=== PATIENT | male | born 1945 | race Caucasian/White ===

== ENCOUNTER → 2017-10-26 | Outpatient (CLI) | payer OTHER | LOC: BHFA 09:00 | PROVIDERS: ATTEND Internal Medicine Cardiovascular Disease | DX: R07.9 Chest pain, unspecified (principal) | CPT/HCPCS: 78452; 93017; A9500 ==

== ENCOUNTER 2017-11-13 07:35 | Day surgery (SDC) | payer OTHER ==
[2017-11-13] MEDS ORDERED: ASPIRIN EC 325 MG TAB PO ONE (07:45)
[2017-11-13] MEDS ORDERED: FAMOTIDINE 20 MG TAB PO ONE (07:45)
[2017-11-13] MEDS ORDERED: NS 1,000 ML IV ONE (07:45)
[2017-11-13] MEDS ORDERED: diphenhydrAMINE 25 MG CAP PO ONE (07:45)
[2017-11-13] MEDS ORDERED: DIAZEPAM 5 MG TAB PO ONE (07:45)
--- NOTE | 2017-11-13 07:58 | CPEKG ---
Heart Rate: 73 RR Interval: 822 P-R Interval: 168 QRSD Interval: 84 QT Interval: 424 QTC Interval: 468 P Concord: 20 QRS Concord: -29 T Wave Concord: 13 EKG Severity - OTHERWISE NORMAL ECG - EKG Impression: SINUS RHYTHM EKG Impression: BORDERLINE LEFT AXIS DEVIATION Electronically Signed By: Fredy Bills 13-Nov-2017 10:43:08
[2017-11-13] MEDS ORDERED: ASPIRIN 81 MG CHEWABLE TAB ONE (08:12)
[2017-11-13] MEDS ORDERED: ASPIRIN EC 81 MG TAB PO ONE (08:13)
[2017-11-13 08:15] LABS: PLATELET COUNT 172 10^3/uL (150-400)
--- NOTE | 2017-11-13 08:22 | PDPROPOC ---
Sedation Plan of Care Sedation Plan of Care: vital signs stable, mental status noted, patient educated of risks, benefits, alternatives, patient can tolerate sedation ASA Classification: ASA 2 Planned drugs: fentanyl, midazolam Mallampati Score: Class 1 Mallampati Reference Image: Patient passed 3-3-2 rule?: Yes
--- NOTE | 2017-11-13 08:22 | PDHPUP ---
History & Physical Update H&P update statement: This history and physical update is based on an assessment of the patient which was completed after admission or registration (within 24 hours), but prior to the surgery/procedure. H&P update: H&P reviewed & patient examined, no change in patient's condition since H&P completed
[2017-11-13 08:24] LABS: INR 1.09 (0.83-1.16); PROTIME(PATIENT) 14.3 SEC (12.0-15.0)
[2017-11-13] MEDS ORDERED: LIDOCAINE 1% 300 MG/30 ML SDV ONE (08:40)
[2017-11-13] MEDS ORDERED: MIDAZOLAM 2 MG/2 ML VIAL ONE (08:40)
[2017-11-13] MEDS ORDERED: fentaNYL 100 MCG/2 ML INJ ONE (08:40)
[2017-11-13] MEDS ORDERED: IOPAMIDOL (ISOVUE-370) 150 ML BTL IV ONE (08:40)
[2017-11-13] MEDS ORDERED: VERAPAMIL 5 MG/2 ML VIAL ONE (08:40)
[2017-11-13] MEDS ORDERED: HEPARIN 10,000 UNIT/10 ML MDV (1,000 UNIT/ML) ONE (08:40)
[2017-11-13] MEDS ORDERED: NITROGLYCERIN 0.4 MG BTL SL PRN (09:31)
[2017-11-13] MEDS ORDERED: ATROPINE SULFATE 1 MG/10 ML SYR IVP PRN (09:31)
--- NOTE | 2017-11-13 09:34 | PDDXCAT ---
Diagnostic Cath Note - . Date: 11/13/17 Retail Merchandiser: Doroteo Indication: CCC Class III and IV angina on medical treatment High-risk criteria on non-invasive testing: stress-induced moderate-size multiple perfusion defects - Procedure Access: right wrist Procedure: left heart catheterization, coronary angiography, left ventriculogram - Materials Left Heart Cath size: 5F Left Heart Cath materials: pigtail, other ([email or web address]) - Findings-Left Heart Catheterization LM: Unobstructed LAD: Proximal stents widely patent without new focal stenosis LCX: Stents widely patent without new focal stenosis RCA: Dominant: Stents widely patent without focal stenosis EDP: 18 mm of mercury LVEF: 60 Wall motion: Normal Complications: None Estimated blood loss: <50ml Closure method: TR Band Assessment: Pre medication 3 mg Versed 100 mcg of fentanyl. Contrast 75 cc. Radiation 3.6 minutes of fluoro time with 420 mGy. Conclusion: Widely patent LAD, circumflex, RCA stents. Preserved left ventricular systolic function with normal filling pressures. Plan: Aggressive medical therapy. Patient Problems: Problems Problem Status Onset Angina at rest Acute Coronary artery disease Acute
== END 2017-11-13 13:00 | disposition home or self-care (01) ==
LOC: FCATH 07:35
PROVIDERS: ATTEND Internal Medicine Interventional Cardiology
DX: R07.89 Other chest pain (principal); R94.39 Abnormal result of other cardiovascular function study; I25.10 Atherosclerotic heart disease of native coronary artery without angina pectoris; Z95.5 Presence of coronary angioplasty implant and graft
CPT/HCPCS: 93005; 93458; C1769; J1644; J2250; J3010; Q9967